=== PATIENT | male | born 1975 | race Caucasian/White ===

== ENCOUNTER → 2020-03-08 | Outpatient (CLI) | payer BC ==
--- NOTE | 2020-03-09 13:46 | 24HR ---
[place] [address] HOLTER MONITOR REPORT Name: NAVID ZEPEDA Room: [facility]#: [id number] Admission: 03/08/20 Attend Phys: Joe Whaley, Discharge: Date of : 71 Date of Service: 03/09/20 0942 Report #: [id number] THIS REPORT FOR: cc: Joe Whaley,Gio Esquivel MD [facility] ~ [facility] Test Date: 2020-03-09 Test Time: 09:42:26 Pat Name: NAVID ZEPEDA Department: Room: Gender: M [employer]: : 1975 Requested By: Joe Whaley Order Number: [id number] Reading MD: Gio Argueta Interpretive Statements 24-hour Holter monitor The basic underlying rhythm is sinus. Intraventricular conduction delay noted. The mean heart rate was 79 bpm. The maximum heart rate was 131 bpm corresponding with sinus tachycardia. The minimum heart rate was 46 bpm corresponding with sinus bradycardia. There were rare premature ventricular contractions. There were no significant nonsustained or sustained ventricular arrhythmias. There were rare premature atrial contractions. There were no significant nonsustained or sustained supraventricular arrhythmias. There were no significant pauses and rhythm. There is no evidence of underlying atrial fibrillation or flutter. Symptoms reported in the diary do not correlate with specific arrhythmia. Electronically Signed On 03-09-2020 13:46:31 TRAIN STARTER by Gio Argueta [email or web address] <ELECTRONICALLY SIGNED> By: Gio Argueta MD, FACC 03/09/20 1346 Gio Argueta MD, FACC /EPI
== END ==
LOC: M.CRD 03-04 11:00
PROVIDERS: ATTEND Family Medicine
DX: R00.2 Palpitations (principal)

== ENCOUNTER 2020-04-24 09:51 | Emergency (ER) | payer BC ==
[~2020-04-24] VITALS: Ht 182.9 cm; Wt 99.8 kg
[2020-04-24] MEDS ORDERED: VALTREX 500 MG500 M1 PER TUBE (10:00)
[2020-04-24 10:16] LABS: ABSOLUTE EOSINOPHILS 0.1 thou/uL (0.0-0.7); ABSOLUTE LYMPHOCYTES 1.1 thou/uL (0.8-5.3); ABSOLUTE MONOCYTES 0.3 thou/uL (0.0-1.2); ABSOLUTE NEUTROPHILS 2.9 thou/uL (1.6-8.1); BASOPHILS 0.7 %; EOSINOPHILS 1.6 %; HEMATOCRIT 44.9 % (42.0-52.0); HEMOGLOBIN 15.3 gm/dL (14.0-18.0); LYMPHOCYTES 24.8 %; MCH 29.3 pg (26.0-34.0); MCHC 34.1 g/dL (28.0-37.0); MONOCYTES 6.3 %; MPV 7.1 fl. (7.2-11.1); NUCLEATED RBCS 0 /100WBC; PLATELET COUNT* 234 thou/uL (150-400); POLYS 66.6 %; RBC 5.22 mil/uL (4.50-6.00); RDW-CV 13.7 % (10.5-14.5); WBC 4.3 thou/uL (4.0-11.0)
[2020-04-24 10:21] LABS: CALCIUM 8.9 mg/dL (8.5-10.1); POTASSIUM 3.8 mmol/L (3.5-5.1)
[2020-04-24 10:26] LABS: APTT 27.7 Seconds (25.0-31.3); PROTIME 10.7 Seconds (9.20-11.50)
[2020-04-24 10:34] LABS: ALBUMIN 4.1 g/dL (3.4-5.0); CK-MB MASS 0.6 ng/mL (<0.5-3.6); TOTAL BILIRUBIN 1.3 mg/dL (<0.1-1.0); TOTAL PROTEIN 7.1 g/dL (6.4-8.2)
[2020-04-24 11:04] VITALS: BP 131/89
--- NOTE | 2020-04-25 10:46 | EKG ---
[place] [address] ELECTROCARDIOGRAM REPORT Name: NAVID ZEPEDA Room: [facility]#: [id number] Admission: 04/24/20 Attend Phys: Discharge: 04/24/20 Date of : 71 Date of Service: 04/24/20 0957 Report #: [id number] THIS REPORT FOR: //name// [facility] ED Test Date: 2020-04-24 Test Time: 09:57:37 Pat Name: NAVID ZEPEDA Department: Room: Gender: [employer] Operator: [facility] : 1975 Requested By: Jomar Morales Order Number: [id number] MD: Jd Rajput Measurements Intervals Skip[place] Rate: 96 P: 65 WV: 158 QRS: -46 QRSD: 127 T: 39 QT: 358 QTc: 453 Interpretive Statements Sinus rhythm RBBB and LAFB No previous ECG available for comparison Electronically Signed On 04-25-2020 10:46:13 TUB ATTENDANT by Jd Rajput [email or web address] <ELECTRONICALLY SIGNED> By: Jd Rajptu MD, [facility] 04/25/20 1046 0957 6 Jd Rajput MD, FACC /EPI
== END 2020-04-24 11:04 | disposition home or self-care (01) ==
LOC: M.ERS 09:51
PROVIDERS: Family Medicine
DX: R07.89 Other chest pain (principal)